=== PATIENT | female | born 1970 | race American Indian/Alaskan Native ===

== ENCOUNTER 2018-02-15 08:53 | Day surgery (SDC) | payer OTHER ==
[2018-02-15] MEDS: NACL 0.9% 1000 ML 1,000 ML IV SCH ×2 (09:55→19:11)
[2018-02-15] MEDS ORDERED: DIPRIVAN 10 MG/ML IV ONE ×2 (10:23)
--- NOTE | 2018-02-15 10:56 | Short Stay Summary ---
Short Stay Documentation Date of service: 02/15/18 Narrative H&P: The patient presents for surveillance colonoscopy for polyps. Last study 6 years ago. - History Past Medical History: GERD Past Surgical History: Other (tubal ligation) Social history: no significant social history, , lives with family, no smoking, no alcohol abuse, no prescription drug abuse - Allergies and Medications Current Medications: Allergies No Known Allergies Allergy (Verified 02/15/18 08:50) Active Medications Sodium Chloride (Nacl 0.9% 1000 Ml) 1,000 mls @ 50 mls/hr IV DIRECT VICKIE Last Admin: 02/15/18 09:55 Dose: 50 mls/hr - Physical exam General appearance: no acute distress, well-nourished Integumentary: no rash, no growths, no abnormal pigmentation HEENT: Atraumatic, PERRLA, EOMI, Mucous membr. moist/pink Lungs: Clear to auscultation, Normal air movement Breasts: deferred Heart: Regular rate, Normal S1, Normal S2, No murmurs Gastrointestinal: normoactive bowel sounds, no tenderness, no distended, no masses, no guarding, no organomegaly Female Genitourinary: deferred Rectal Exam: normal exam-external/orifice, normal rectal tone, no mass Extremities: no ischemia, pulses intact, pulses symmetrical, No edema, normal temperature, normal color Neurological: Normal gait, Normal speech, Strength at 5/5 X4 ext, Normal tone, Sensation intact, Cranial nerves 3-12 NL - Brief post op/procedure progress note Date of procedure: 02/15/18 Findings: see dictated report Estimated blood loss: none Pathology: none Condition: stable - Disposition Condition at discharge: Good - Discharge Diagnoses (1) History of colon polyps Status: Acute Short Stay Discharge Plan Activity: other (no driving for 24 hours.) Weight Bearing Status: Weight Bear as Tolerated Diet: regular Follow up with: VANE WONG MD [Primary Care Provider] - 7 Days
--- NOTE | 2018-02-15 10:57 | Operative Report ---
Operative Report Operative Report: Date of procedure: 02/15/2018 Preprocedure diagnosis:: History of colon polyps. Last study 6 years ago. Post procedure diagnosis: No recurrent polyps Procedure: Colonoscopy to the cecum Endoscopist: Dr. Khoury Anesthesia: Monitored anesthesia care per anesthesia department Estimated blood loss: 0 Medications: Monitored anesthesia care. See separate report by anesthesia for details. After careful discussion of the nature and purpose of the procedure as well as details of the technique risks benefits and alternatives the patient gave consent. Please see recent history and physical from the office. The patient was placed in the left lateral decubitus position and medicated per anesthesia. A rectal exam was performed sphincter tone was normal there were no masses palpable. The Therasisn 570 scope was passed transanally and advanced under continuous direct vision without difficulty to the cecum. The colon was well prepared. The cecum was normal. The ascending colon was normal and on forward and retroflexed views. The transverse colon, descending colon, and sigmoid colon were normal. The rectum was normal on forward and retroflexed views. The procedure was well-tolerated overall and the patient was observed in recovery. Conclusions: Normal colonoscopy to the cecum. Plan: Repeat colonoscopy in 5 years. Signed electronically: Dusty Khoury M.D.
--- NOTE | 2018-02-15 11:06 | Anesthesia Day of Surgery ---
Anesthesia Day of Surgery - Day of Surgery Patient Examined: Yes Patient H&P Reviewed: Yes Patient is NPO: Yes
--- NOTE | 2018-02-15 11:06 | Anesthesia Consultation ---
Anesthesia Consult and Med Hx Date of service: 02/15/18 - Airway Anesthetic Teeth Evaluation: Good ROM Head & Neck: Adequate Mental/Hyoid Distance: Adequate Mallampati Class: Class I Intubation Access Assessment: Good - Pulmonary Exam CTA: Yes - Cardiac Exam Cardiac Exam: RRR - Pre-Operative Health Status ASA Pre-Surgery Classification: ASA1 - Other Systems Hx Cancer: No
[2018-02-15 11:22] VITALS: BP 112/63
== END 2018-02-15 08:54 | disposition home or self-care (01) ==
LOC: GIO 08:53
PROVIDERS: ATTEND Internal Medicine Gastroenterology
DX: Z12.11 Encounter for screening for malignant neoplasm of colon (principal); K21.9 Gastro-esophageal reflux disease without esophagitis; Z98.51 Tubal ligation status; Z86.010 Personal history of colon polyps
CPT/HCPCS: 45378; J2704; J7030

== ENCOUNTER 2018-04-19 10:02 | Emergency (ER) | payer OTHER ==
[2018-04-19 10:15] VITALS: BP 141/93
[2018-04-19] MEDS ORDERED: TYLENOL PO ONE (12:17)
[2018-04-19] MEDS ORDERED: MOTRIN PO ONE (12:17)
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
== END 2018-04-19 12:30 | disposition home or self-care (01) ==
LOC: ED 10:02
DX: M54.2 Cervicalgia (principal); M54.5 Low back pain; K21.9 Gastro-esophageal reflux disease without esophagitis; E21.3 Hyperparathyroidism, unspecified; Z98.51 Tubal ligation status; V49.49XA Driver injured in collision with other motor vehicles in traffic accident, initial encounter; Y93.89 Activity, other specified; Y92.89 Other specified places as the place of occurrence of the external cause; Y99.8 Other external cause status
CPT/HCPCS: 99282